=== PATIENT | female | born 1950 | race Caucasian/White ===

== ENCOUNTER → 2024-09-10 | Outpatient (REF) | payer MEDICARE, MEDICAID, SELFPAY ==
[2024-09-10 09:31] LABS: Hematocrit 39.1 % (37-47); Hemoglobin 12.1 g/dL (12.0-15.0); Mean Corp Hgb Conc 30.9 g/dL (32-36); Mean Corpuscular Hgb 30.7 pg (27.0-32.0); Mean Corpuscular Volume 99.2 fL (81-99); Platelet Count 149 K/mm3 (150-450); RBC Distribution Width CV 15.9 % (11.6-14.6); RBC Distribution Width SD 57.6 fl (35.1-43.9); Red Blood Count 3.94 M/mm3 (4.2-5.4); White Blood Count 9.5 K/mm3 (4.4-11.0)
[2024-09-10 09:51] LABS: Anion Gap 5 (5-15); BUN 41 mg/dL (7-18); BUN/Creat Ratio 46.2 RATIO (10-20); Calcium,Total 10.4 mg/dL (8.5-10.1); Chloride 110 mmol/L (98-107); Creatinine, Serum 0.89 mg/dL (0.55-1.02); EST Glomerular Filtration Rate 67 mL/min (>60); Est Glom Filt Rate - Afr Amer 80 mL/min (>60); Glucose 176 mg/dL (74-106); Potassium 3.9 mmol/L (3.5-5.1); Sodium Level 149 mmol/L (136-145)
[2024-09-10 10:28] LABS: Color, Urine Yellow (Yellow); Glucose, Dipstick 1000 mg/dl (Normal); Ketone-Dipstick 50 mg/dl (Negative); Leukocyte Esterase-Dipstick 500 /ul (Negative); Nitrite-Dipstick Negative (Negative); Occult Blood-Urine 50 /ul (Negative); Protein-Dipstick 30 mg/dl (Negative); Specific Gravity, Urine 1.015 (1.002-1.030); Urine Bilirubin Dipstick Negative (Negative); Urine Clarity Sl. Cloudy (Clear); Urine Urobilinogen Normal (Normal)
== END ==
LOC: OLS.ACW400 05:00
PROVIDERS: Visit Provider Family Medicine
DX: R39.9 Unspecified symptoms and signs involving the genitourinary system (principal); G92.8 Other toxic encephalopathy
CPT/HCPCS: 36415; 80048; 81002; 85027; 87077; 87086; 87088; 87186

== ENCOUNTER → 2024-09-15 | Outpatient (REF) | payer MEDICARE, MEDICAID, SELFPAY ==
[2024-09-15 12:27] LABS: Hemoglobin A1c 6.4 % (3.8-5.6)
== END ==
LOC: OLS.ACW400 05:00
PROVIDERS: Visit Provider Family Medicine
DX: E10.40 Type 1 diabetes mellitus with diabetic neuropathy, unspecified (principal)
CPT/HCPCS: 36415; 83036

== ENCOUNTER → 2024-10-14 | Outpatient (REF) | payer MEDICARE, MEDICAID, SELFPAY ==
[2024-10-14 07:11] LABS: Hematocrit 36.1 % (37-47); Hemoglobin 10.9 g/dL (12.0-15.0); Mean Corp Hgb Conc 30.2 g/dL (32-36); Mean Corpuscular Hgb 31.8 pg (27.0-32.0); Mean Corpuscular Volume 105.2 fL (81-99); Mean Platelet Vol. 11.7 fl (6.2-12.0); Platelet Count 197 K/mm3 (150-450); RBC Distribution Width CV 16.4 % (11.6-14.6); RBC Distribution Width SD 64.4 fl (35.1-43.9); Red Blood Count 3.43 M/mm3 (4.2-5.4); White Blood Count 5.9 K/mm3 (4.4-11.0)
[2024-10-14 07:51] LABS: ALB/GLOB Ratio 0.8 RATIO (0.9-2.4); AST(SGOT) 17 U/L (15-37); Alanine Aminotransfer ALT/SGPT 33 U/L (13-56); Alkaline Phosphatase 104 U/L (45-117); Anion Gap 5 (5-15); BUN 43 mg/dL (7-18); BUN/Creat Ratio 75.3 RATIO (10-20); Calcium,Total 9.5 mg/dL (8.5-10.1); Chloride 112 mmol/L (98-107); Cholesterol 136 mg/dL (200); Creatinine, Serum 0.57 mg/dL (0.55-1.02); EST Glomerular Filtration Rate 111 mL/min (>60); Est Glom Filt Rate - Afr Amer 134 mL/min (>60); Globulin 3.9 g/dL (2.2-4.2); Glucose 53 mg/dL (74-106); High Density Lipoprotein 53 mg/dL; Potassium 3.7 mmol/L (3.5-5.1); Protein, Total 6.9 g/dL (6.4-8.2); Sodium Level 150 mmol/L (136-145); Triglycerides 132 mg/dL; Very Low Density Lipoprotein 26 mg/dL (5-40)
== END ==
LOC: OLS.ACW400 05:00
PROVIDERS: Visit Provider Family Medicine
DX: G92.8 Other toxic encephalopathy (principal); G40.A01 Absence epileptic syndrome, not intractable, with status epilepticus; E78.5 Hyperlipidemia, unspecified
CPT/HCPCS: 36415; 80053; 80061; 85027

== ENCOUNTER → 2024-10-17 | Outpatient (REF) | payer MEDICARE, MEDICAID, SELFPAY ==
[2024-10-17 08:45] LABS: Anion Gap 5 (5-15); BUN 47 mg/dL (7-18); BUN/Creat Ratio 68.8 RATIO (10-20); Calcium,Total 9.7 mg/dL (8.5-10.1); Chloride 114 mmol/L (98-107); Creatinine, Serum 0.68 mg/dL (0.55-1.02); EST Glomerular Filtration Rate 90 mL/min (>60); Est Glom Filt Rate - Afr Amer 109 mL/min (>60); Glucose 235 mg/dL (74-106); Potassium 4.2 mmol/L (3.5-5.1); Sodium Level 151 mmol/L (136-145)
== END ==
LOC: OLS.ACW400 05:00
PROVIDERS: Visit Provider Family Medicine
DX: G92.8 Other toxic encephalopathy (principal)
CPT/HCPCS: 36415; 80048

== ENCOUNTER → 2024-10-21 | Outpatient (REF) | payer MEDICARE, MEDICAID, SELFPAY ==
[2024-10-21 09:02] LABS: Anion Gap 4 (5-15); BUN 38 mg/dL (7-18); BUN/Creat Ratio 61.9 RATIO (10-20); Calcium,Total 9.5 mg/dL (8.5-10.1); Chloride 123 mmol/L (98-107); Creatinine, Serum 0.61 mg/dL (0.55-1.02); EST Glomerular Filtration Rate 102 mL/min (>60); Est Glom Filt Rate - Afr Amer 123 mL/min (>60); Glucose 149 mg/dL (74-106); Potassium 3.7 mmol/L (3.5-5.1); Sodium Level 159 mmol/L (136-145)
== END ==
LOC: OLS.ACW400 05:00
PROVIDERS: Visit Provider Family Medicine
DX: G92.8 Other toxic encephalopathy (principal)
CPT/HCPCS: 36415; 80048

== ENCOUNTER → 2024-10-22 | Outpatient (REF) | payer MEDICARE, MEDICAID, SELFPAY ==
[2024-10-22 07:56] LABS: Hematocrit 37.6 % (37-47); Hemoglobin 10.9 g/dL (12.0-15.0); Mean Corpuscular Hgb 32.3 pg (27.0-32.0); Mean Corpuscular Volume 111.6 fL (81-99); Mean Platelet Vol. 12.6 fl (6.2-12.0); Platelet Count 122 K/mm3 (150-450); RBC Distribution Width CV 14.9 % (11.6-14.6); Red Blood Count 3.37 M/mm3 (4.2-5.4); White Blood Count 6.1 K/mm3 (4.4-11.0)
[2024-10-22 08:07] LABS: Anion Gap 2 (5-15); BUN 44 mg/dL (7-18); BUN/Creat Ratio 73.9 RATIO (10-20); Calcium,Total 8.9 mg/dL (8.5-10.1); Chloride 120 mmol/L (98-107); EST Glomerular Filtration Rate 106 mL/min (>60); Est Glom Filt Rate - Afr Amer 128 mL/min (>60); Glucose 213 mg/dL (74-106); Potassium 3.8 mmol/L (3.5-5.1); Sodium Level 155 mmol/L (136-145)
== END ==
LOC: OLS.ACW400 05:00
PROVIDERS: Visit Provider Family Medicine
DX: G92.8 Other toxic encephalopathy (principal)
CPT/HCPCS: 36415; 80048; 85027

== ENCOUNTER → 2024-10-24 | Outpatient (REF) | payer MEDICARE, MEDICAID, SELFPAY ==
[2024-10-24 09:49] LABS: Anion Gap 2 (5-15); BUN 43 mg/dL (7-18); BUN/Creat Ratio 72.5 RATIO (10-20); Calcium,Total 9.3 mg/dL (8.5-10.1); Chloride 119 mmol/L (98-107); Creatinine, Serum 0.59 mg/dL (0.55-1.02); EST Glomerular Filtration Rate 106 mL/min (>60); Est Glom Filt Rate - Afr Amer 128 mL/min (>60); Glucose 283 mg/dL (74-106); Potassium 3.9 mmol/L (3.5-5.1); Sodium Level 153 mmol/L (136-145)
== END ==
LOC: OLS.ACW400 05:00
PROVIDERS: Visit Provider Family Medicine
DX: G92.8 Other toxic encephalopathy (principal)
CPT/HCPCS: 36415; 80048

== ENCOUNTER → 2024-10-27 | Outpatient (REF) | payer MEDICARE, MEDICAID, SELFPAY ==
[2024-10-27 08:18] LABS: Hematocrit 31.8 % (37-47); Hemoglobin 9.5 g/dL (12.0-15.0); Mean Corp Hgb Conc 29.9 g/dL (32-36); Mean Corpuscular Volume 107.1 fL (81-99); Mean Platelet Vol. 12.6 fl (6.2-12.0); Platelet Count 130 K/mm3 (150-450); RBC Distribution Width CV 14.5 % (11.6-14.6); RBC Distribution Width SD 55.8 fl (35.1-43.9); Red Blood Count 2.97 M/mm3 (4.2-5.4); White Blood Count 5.6 K/mm3 (4.4-11.0)
[2024-10-27 08:51] LABS: Anion Gap 5 (5-15); BUN 45 mg/dL (7-18); BUN/Creat Ratio 70.2 RATIO (10-20); Calcium,Total 9.4 mg/dL (8.5-10.1); Chloride 115 mmol/L (98-107); Creatinine, Serum 0.64 mg/dL (0.55-1.02); EST Glomerular Filtration Rate 97 mL/min (>60); Est Glom Filt Rate - Afr Amer 117 mL/min (>60); Glucose 281 mg/dL (74-106); Potassium 3.6 mmol/L (3.5-5.1); Sodium Level 152 mmol/L (136-145)
== END ==
LOC: OLS.ACW400 05:00
PROVIDERS: Visit Provider Family Medicine
DX: G93.41 Metabolic encephalopathy (principal); E44.0 Moderate protein-calorie malnutrition
CPT/HCPCS: 36415; 80048; 85027

== ENCOUNTER → 2024-11-24 | Outpatient (REF) | payer MEDICARE, MEDICAID, SELFPAY ==
[2024-11-24 09:04] LABS: Hematocrit 29.6 % (37-47); Hemoglobin 8.6 g/dL (12.0-15.0); Mean Corp Hgb Conc 29.1 g/dL (32-36); Mean Corpuscular Hgb 30.9 pg (27.0-32.0); Mean Corpuscular Volume 106.5 fL (81-99); Mean Platelet Vol. 11.7 fl (6.2-12.0); Platelet Count 313 K/mm3 (150-450); RBC Distribution Width CV 13.8 % (11.6-14.6); RBC Distribution Width SD 53.9 fl (35.1-43.9); Red Blood Count 2.78 M/mm3 (4.2-5.4); White Blood Count 7.5 K/mm3 (4.4-11.0)
[2024-11-24 09:22] LABS: Ferritin 189 ng/mL (8-252); Iron 26 ug/dL (50-170); Iron Binding Capacity,Total 189 ug/dL (250-450)
== END ==
LOC: OLS.ACW400 05:00
PROVIDERS: Visit Provider Family Medicine
DX: G92.8 Other toxic encephalopathy (principal); D64.9 Anemia, unspecified; A41.9 Sepsis, unspecified organism
CPT/HCPCS: 36415; 82728; 83540; 83550; 85027

== ENCOUNTER → 2024-11-25 18:00 | Outpatient (REF) | payer MEDICARE, MEDICAID, SELFPAY ==
[2024-11-27 09:26] LABS: Color, Urine Yellow (Yellow); Glucose, Dipstick Normal (Normal); Ketone-Dipstick Negative (Negative); Leukocyte Esterase-Dipstick 500 /ul (Negative); Nitrite-Dipstick Negative (Negative); Occult Blood-Urine 250 /ul (Negative); Protein-Dipstick 30 mg/dl (Negative); Specific Gravity, Urine 1.005 (1.002-1.030); Urine Bilirubin Dipstick Negative (Negative); Urine Clarity Sl. Cloudy (Clear); Urine Urobilinogen Normal (Normal)
== END ==
LOC: OLS.ACW400 18:00
PROVIDERS: Visit Provider Family Medicine
DX: N39.0 Urinary tract infection, site not specified (principal)
CPT/HCPCS: 81002; 87077; 87086; 87088; 87186

== ENCOUNTER → 2024-12-08 04:00 | Outpatient (REF) | payer MEDICARE, MEDICAID, SELFPAY ==
[2024-12-08 08:35] LABS: Hematocrit 28.7 % (37-47); Hemoglobin 8.8 g/dL (12.0-15.0); Mean Corp Hgb Conc 30.7 g/dL (32-36); Mean Corpuscular Hgb 29.3 pg (27.0-32.0); Mean Corpuscular Volume 95.7 fL (81-99); Mean Platelet Vol. 11.1 fl (6.2-12.0); Platelet Count 278 K/mm3 (150-450); RBC Distribution Width CV 15.1 % (11.6-14.6); RBC Distribution Width SD 52.7 fl (35.1-43.9); White Blood Count 5.2 K/mm3 (4.4-11.0)
[2024-12-08 09:01] LABS: Anion Gap 8 (5-15); BUN 22 mg/dL (7-18); BUN/Creat Ratio 43.9 RATIO (10-20); Calcium,Total 9.3 mg/dL (8.5-10.1); Chloride 101 mmol/L (98-107); EST Glomerular Filtration Rate 129 mL/min (>60); Est Glom Filt Rate - Afr Amer 156 mL/min (>60); Glucose 196 mg/dL (74-106); Potassium 3.8 mmol/L (3.5-5.1); Sodium Level 138 mmol/L (136-145)
== END ==
LOC: OLS.ACW400 04:00
PROVIDERS: Referring Provider Family Medicine; Visit Provider Family Medicine
DX: G92.8 Other toxic encephalopathy (principal); R27.9 Unspecified lack of coordination; R41.841 Cognitive communication deficit; R53.1 Weakness
CPT/HCPCS: 36415; 80048; 85027